=== PATIENT | female | born 1960 | race Caucasian/White ===

== ENCOUNTER 2019-09-21 09:11 | Inpatient (IN) | payer BC, MEDICARE, OTHER ==
[2019-09-21] VITALS (13 sets, daily range): BP systolic 110–142; BP diastolic 53–84
[~2019-09-21] VITALS: Ht 162.6 cm; Wt 72.4 kg
[~2019-09-21 09:11] MED LIST: OXYC1TAB15 PO
[2019-09-21] MEDS: NITROGLYCERIN SUBLINGUAL 0.4 MG BOTTLE OF 25. SL PRN ×3 (09:20→10:04)
--- NOTE | 2019-09-21 09:27 | PHYS DOC ---
Past Medical History Past Medical History: No Pertinent History Smoking Status: Current Every Day Smoker Alcohol Use: None Drug Use: None General Adult HPI: HPI: Patient is a 58 year old female who presents with substernal/l sided sharp chest pain that radiates between her shoulder blades with associated shortness of breath. Patient states she had the pain yesterday after smoking a cigarette for about 15 minutes and then it resolved. She had another short episode of the pain overnight that resolved. At 7am this morning, she smoked a cigarette and the pain started again. She states since then it has just gotten worse and isn't getting any better. She has never had anything similar. She has no cardiac history. She does have a history of tobacco abuse, HLD, HTN. Review of Systems: Review of Systems: General: Denies fever, chills, sweats, fatigue Eyes: Denies drainage, blurred vision, eye redness HENT: Denies rhinorrhea, sore throat, earache Respiratory: Denies cough, wheezing. Reports SOB Cardiac: Denies edema, palpitations. Reports chest pain GI: Denies abdominal pain, Nausea, vomiting MSK: Denies neck pain. Reports back pain Skin: Denies rash, jaundice Neuro: Denies headache, dizziness Psychiatric: Denies SI/HI Heart Score: Risk Factors: Risk Factors: DM, Current or recent (<one month) smoker, HTN, HLP, family history of CAD, obesity. Risk Scores: Score 0 - 3: 2.5% MACE over next 6 weeks - Discharge Home Score 4 - 6: 20.3% MACE over next 6 weeks - Admit for Clinical Observation Score 7 - 10: 72.7% MACE over next 6 weeks - Early Invasive Strategies Current Medications: Current Medications Medications (Trade) Dose Ordered Sig/Mikael Start Time Stop Time Status Last Admin Dose Admin Nitroglycerin (Nitrostat) 0.4 mg PRN Q5MIN PRN 09/21/19 09:30 UNV 09/21/19 09:20 0.4 MG Allergies: Allergies: Allergies Coded Allergies Type Severity Reaction Last Updated Verified No Known Drug Allergies 10/01/16 No Physical Exam: PE: General: Awake, alert, mild distress. Well Nourished, well hydrated. Cooperative HEENT: Atraumatic, EOMI, PERRL, airway patent, moist oral mucosa Neck: Supple, trachea midline Respiratory: CTA bilaterally, normal effort, no wheezing/crackles, decreased breath sounds bilaterally CV: RRR, no murmur, cap refill <2 GI: Soft, nondistended, nontender, no masses MSK: No obvious deformities Skin: Warm, dry, intact Neuro: A&O x3, speech NL, sensory and motor grossly intact, no focal deficits Psych: Normal affect, normal mood, not suicidal or homicidal Current Patient Data: Vital Signs: Vital Signs Date Time Temp Pulse Resp B/P (MAP) Pulse Ox O2 Delivery O2 Flow Rate FiO2 09/21/19 09:20 82 166/87 EKG: EKG: [] Radiology/Procedures: Radiology/Procedures: [] Course & Med Decision Making: Course & Med Decision Making Pertinent Labs and Imaging studies reviewed. (See chart for details) Patient is a 58 year-old female with a past medical history of HTN, HLD, tobacco abuse who presents to the Emergency Room complaining of chest pain and SOB. Upon arrival to the Emergency Room, an EKG was ordered and performed. EKG shows ST depression and some possible elevation concerning for possible STEMI. laboratory technology teacher was activated prior to patient's arrival and patient was discussed with the on-call Preschool Teacher Assistant. Cardiology care and evaluation greatly appreciated. STEMI was cancelled, however patient was evaluated by cardiology at 0950. Patient was given aspirin and work up was ordered including CBC, BMP, troponin, BNP, Chest X-ray. Care will be taken over by Cardiology at this time. Arrangements will be made for the patient to be admitted to the ICU floor. Dragon Disclaimer: Dragon Disclaimer: This electronic medical record was generated, in whole or in part, using a voice recognition dictation system. Critical Care Time Critical Care: Authorized and Performed by: Belén Herman MD Total critical care time: approximately 35 minutes Due to a high probability of clinically significant, life threatening deterioration, the patient required my highest level of preparedness to intervene emergently and I personally spent this critical care time directly and personally managing the patient. This critical care time included obtaining a history; examining the patient; pulse oximetry; ventilator management if necess maria dolores; ordering and review of studies; arranging urgent treatment with development of a management plan; evaluation of patient's response to treatment; frequent reassessment; discussion with patient/family; and, discussions with other providers. This critical care time was performed to assess and manage the high probability of imminent, life-threatening deterioration that could result in multi-organ failure. It was exclusive of separately billable procedures and treating other patients and teaching time. Please see MDM section and the rest of the note for further information on patient assessment and treatment. Departure Departure Impression: Primary Impression: ACS (acute coronary syndrome) Disposition: ADMITTED INPATIENT Condition: STABLE Referrals: MAY MARTINEZ Jr, MD (PCP) Justicifation of Admission Dx: Justifications for Admission: Justification of Admission Dx: Yes BELÉN HERMAN MD Sep 21, 2019 09:27
[2019-09-21] MEDS ORDERED: MORPHINE SULFATE 10 MG/ML VIAL. ONE (09:29)
[2019-09-21] MEDS ORDERED: MORPHINE SULFATE 10 MG/ML VIAL. IV ONE ×2 (09:30→10:00)
[2019-09-21 09:31] LABS: BASO # 0.1 x10^3/uL (0.0-0.2); BASO % 1 % (0-3); EOS # 0.2 x10^3/uL (0.0-0.7); EOS % 2 % (0-3); HEMATOCRIT 46.4 % (36.0-47.0); HEMOGLOBIN 15.8 g/dL (12.0-15.5); LYMPH % 28 % (24-48); MEAN CORPUSCULAR HEMOGLOBIN 36 pg (25-35); MEAN CORPUSCULAR HGB CONC 34 g/dL (31-37); MEAN CORPUSCULAR VOLUME 106 fL (79-100); MONO # 0.8 x10^3/uL (0.0-1.1); MONO % 8 % (0-9); NEUT # 6.6 x10^3/uL (1.8-7.7); NEUT % 61 % (31-73); PLATELET COUNT 232 x10^3/uL (140-400); RED CELL DISTRIBUTION WIDTH 15.4 % (11.5-14.5); WHITE BLOOD COUNT 10.7 x10^3/uL (4.0-11.0)
[2019-09-21 09:37] LABS: CALCIUM 9.6 mg/dL (8.5-10.1); CREATININE 0.8 mg/dL (0.6-1.0); GFR 73.2; POTASSIUM 3.4 mmol/L (3.5-5.1)
[2019-09-21 09:42] LABS: ALBUMIN 3.9 g/dL (3.4-5.0); ALBUMIN/GLOBULIN RATIO 1.1 (1.0-1.7); TOTAL BILIRUBIN 0.7 mg/dL (0.2-1.0); TOTAL PROTEIN 7.5 g/dL (6.4-8.2)
--- NOTE | 2019-09-21 09:54 | RAD ---
EXAM: CHEST AP ONLY INDICATION: Reason: chest pain, STEMI / Spl. Instructions: / History: . TECHNIQUE: Single view COMPARISON: Abdomen CT 09/30/2016 FINDINGS: The heart size is normal. The great vessels appear unremarkable. There is no hilar or mediastinal mass. The lungs show mild cephalization of the pulmonary vessels.. There is no pleural effusion or pneumothorax. There are no significant osseous abnormalities. IMPRESSION: Mild cephalization of pulmonary vessels, possibly a reflection of developing pulmonary vascular congestion. Otherwise no active cardiopulmonary disease. Electronically signed by: Karen Dugan MD (09/21/2019 9:51 AM) [id number]
[2019-09-21] MEDS ORDERED: HEPARIN for IV BOLUS 10,000 UNIT/10 ML VIAL. IV ONE ×2 (10:00→10:45)
[2019-09-21] MEDS ORDERED: LIDOCAINE 1% PF 2 ML VIAL. ONE (10:02)
--- NOTE | 2019-09-21 10:05 | EKG ---
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
[2019-09-21] MEDS ORDERED: HEPARIN for IV BOLUS 10,000 UNIT/10 ML VIAL. ONE (10:12)
[2019-09-21] MEDS ORDERED: VERAPAMIL 5 MG/2 ML VIAL. ONE (10:12)
[2019-09-21] MEDS ORDERED: IODIXANOL 320 MG/ML 100 ML VIAL. ONE ×2 (10:12→10:34)
[2019-09-21] MEDS ORDERED: MIDAZOLAM HCL/PF 2 MG/2 ML VIAL. ONE (10:12)
[2019-09-21] MEDS ORDERED: fentaNYL PF VIAL 100 MCG/2 ML VIAL ONE (10:12)
[2019-09-21] MEDS ORDERED: TIROFIBAN 5MG -0.9% NS 100 ML IV ONE (10:22)
[2019-09-21] MEDS: TIROFIBAN 5MG -0.9% NS 100 ML IV PRN ×3 (10:33→22:32)
[2019-09-21] MEDS ORDERED: PRASUGREL 10 MG TABLET. ONE (10:43)
[2019-09-21] MEDS ORDERED: HEPARIN for IV BOLUS 10,000 UNIT/10 ML VIAL. IART ONE (10:45)
[2019-09-21] MEDS ORDERED: LIDOCAINE 1% PF 2 ML VIAL. INJ ONE (10:45)
[2019-09-21] MEDS ORDERED: VERAPAMIL 5 MG/2 ML VIAL. IART ONE (10:45)
[2019-09-21] MEDS ORDERED: PRASUGREL 10 MG TABLET. PO ONE (10:45)
[2019-09-21] MEDS ORDERED: NITROGLYCERIN 200 MCG/2 ML SYRINGE FOR CATH/VASC LAB. IART ONE (10:45)
[2019-09-21] MEDS ORDERED: fentaNYL PF VIAL 100 MCG/2 ML VIAL IV ONE (10:45)
[2019-09-21] MEDS ORDERED: IODIXANOL 320 MG/ML 100 ML VIAL. IART ONE (10:45)
[2019-09-21] MEDS ORDERED: NITROGLYCERIN 200 MCG/2 ML SYRINGE FOR CATH/VASC LAB. ICAR ONE (10:45)
[2019-09-21 10:49] LABS: PLT ESTIMATE ADEQUATE (ADEQUATE)
[2019-09-21] MEDS ORDERED: MIDAZOLAM HCL/PF 2 MG/2 ML VIAL. IV ONE (11:00)
[2019-09-21] MEDS ORDERED: CONTRAST GIVEN. MC PRN (11:00)
--- NOTE | 2019-09-21 11:25 | EKG ---
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
[2019-09-21] MEDS ORDERED: LISI-334 PO (13:05)
[2019-09-21] MEDS ORDERED: PRAV40TA2 PO (13:05)
[2019-09-21] MEDS ORDERED: LEVO100T5 PO (13:05)
--- NOTE | 2019-09-21 13:48 | PDOC1 ---
History and Physical Date of Admission Date of Admission DATE: 09/21/19 TIME: 13:41 Identification/Chief Complaint Chief Complaint Chest pain History of Present Illness History of Present Illness Sudden left sternal chest pain today. Crushing pain, 10/18. No history similar pain. Past Medical History Cardiovascular: No pertinent hx, HTN Past Surgical History Past Surgical History: No pertinent history Family History Family History: Hypertension Social History Smoke: 1 pack per day ALCOHOL: none Drugs: None Current Problem List Problem List Problems Medical Problems: (1) ACS (acute coronary syndrome) Status: Acute Current Medications Current Medications Current Medications Nitroglycerin (Nitrostat) 0.4 mg PRN Q5MIN PRN SL CHEST PAIN Last administered on 09/21/19at 10:04; Start 09/21/19 at 09:30 Morphine Sulfate (Morphine Sulfate) 5 mg 1X ONCE IV Last administered on 09/21/19at 09:36; Start 09/21/19 at 09:30; Stop 09/21/19 at 09:31; Status DC Morphine Sulfate (Morphine Sulfate) 10 mg STK-MED ONCE .ROUTE ; Start 09/21/19 at 09:29; Stop 09/21/19 at 09:29; Status DC Morphine Sulfate (Morphine Sulfate) 5 mg 1X ONCE IV Last administered on 09/21/19at 10:03; Start 09/21/19 at 10:00; Stop 09/21/19 at 10:01; Status DC Heparin Sodium (Porcine) (Heparin Sodium) 4,000 unit 1X ONCE IV Last administered on 09/21/19at 10:04; Start 09/21/19 at 10:00; Stop 09/21/19 at 10:01; Status DC Lidocaine HCl (Xylocaine-Mpf 1% 2ml Vial) 2 ml STK-MED ONCE .ROUTE ; Start 09/21/19 at 10:02; Stop 09/21/19 at 10:03; Status DC Heparin Sodium/ Sodium Chloride 1,000 ml @ As Directed STK-MED ONCE .ROUTE ; Start 09/21/19 at 10:02; Stop 09/21/19 at 10:03; Status DC Fentanyl Citrate (Fentanyl 2ml Vial) 100 mcg STK-MED ONCE .ROUTE ; Start 09/21/19 at 10:12; Stop 09/21/19 at 10:12; Status DC Midazolam HCl (Versed) 2 mg STK-MED ONCE .ROUTE ; Start 09/21/19 at 10:12; Stop 09/21/19 at 10:12; Status DC Heparin Sodium (Porcine) (Heparin Sodium) 10,000 unit STK-MED ONCE .ROUTE ; Start 09/21/19 at 10:12; Stop 09/21/19 at 10:12; Status DC Verapamil HCl (Verapamil) 5 mg STK-MED ONCE .ROUTE ; Start 09/21/19 at 10:12; Stop 09/21/19 at 10:12; Status DC Iodixanol (Visipaque 320) 100 ml STK-MED ONCE .ROUTE ; Start 09/21/19 at 10:12; Stop 09/21/19 at 10:13; Status DC Tirofiban/Sodium Chloride 100 ml @ As Directed STK-MED ONCE IV ; Start 09/21/19 at 10:22; Stop 09/21/19 at 10:23; Status DC Iodixanol (Visipaque 320) 100 ml STK-MED ONCE .ROUTE ; Start 09/21/19 at 10:34; Stop 09/21/19 at 10:34; Status DC Prasugrel (Effient) 10 mg STK-MED ONCE .ROUTE ; Start 09/21/19 at 10:43; Stop 09/21/19 at 10:43; Status DC Nitroglycerin (Nitroglycerin) 200 mcg 1X ONCE IART Last administered on 09/21/19at 11:02; Start 09/21/19 at 10:45; Stop 09/21/19 at 10:58; Status DC Verapamil HCl (Verapamil) 2.5 mg 1X ONCE IART Last administered on 09/21/19at 11:03; Start 09/21/19 at 10:45; Stop 09/21/19 at 10:58; Status DC Heparin Sodium (Porcine) (Heparin Sodium) 2,500 unit 1X ONCE IART Last administered on 09/21/19at 11:05; Start 09/21/19 at 10:45; Stop 09/21/19 at 10:58; Status DC Heparin Sodium/ Sodium Chloride (HEPARIN for ARTERIAL LINE FLUSH) 1,000 unit 1X ONCE IART Last administered on 09/21/19at 11:02; Start 09/21/19 at 10:45; Stop 09/21/19 at 10:58; Status DC Fentanyl Citrate (Fentanyl 2ml Vial) 100 mcg 1X ONCE IV Last administered on 09/21/19at 11:03; Start 09/21/19 at 10:45; Stop 09/21/19 at 10:58; Status DC Iodixanol (Visipaque 320) 100 ml 1X ONCE IART Last administered on 09/21/19at 11:02; Start 09/21/19 at 10:45; Stop 09/21/19 at 10:58; Status DC Prasugrel (Effient) 60 mg 1X ONCE PO Last administered on 09/21/19at 11:02; S tart 09/21/19 at 10:45; Stop 09/21/19 at 10:58; Status DC Heparin Sodium (Porcine) (Heparin Sodium) 500 unit 1X ONCE IV Last a dministered on 09/21/19at 11:05; Start 09/21/19 at 10:45; Stop 09/21/19 at 10:58; Status DC Tirofiban/Sodium Chloride 100 ml @ 0 mls/hr CONT PRN IV PER PROTOCOL Last administered on 09/21/19at 10:33; Start 09/21/19 at 10:33; Stop 09/22/19 at 04:32 Lidocaine HCl (Xylocaine-Mpf 1% 2ml Vial) 1 ml 1X ONCE INJ Last administered on 09/21/19at 11:03; Start 09/21/19 at 10:45; Stop 09/21/19 at 10:58; Status DC Nitroglycerin (Nitroglycerin) 200 mcg 1X ONCE ICAR Last administered on 09/21/19at 11:02; Start 09/21/19 at 10:45; Stop 09/21/19 at 10:58; Status DC Midazolam HCl (Versed) 1 mg 1X ONCE IV Last administered on 09/21/19at 11:03; Start 09/21/19 at 11:00; Stop 09/21/19 at 11:01; Status DC Info (CONTRAST GIVEN -- Rx MONITORING) 1 each PRN DAILY PRN MC SEE COMMENTS; Start 09/21/19 at 11:00; Stop 09/23/19 at 10:59 Active Scripts Active Reported Pravastatin Sodium 40 Mg Tablet 1 Tab PO QHS Levothyroxine Sodium 100 Mcg Tablet 1 Tab PO DAILY Lisinopril 20 Mg Tablet 1 Tab PO DAILY Percocet 5-325 Mg Tablet (Oxycodone/Acetaminophen) 1 Each Tablet 1 Tab PO PRN Q8HRS PRN Allergies Allergies: Coded Allergies: No Known Drug Allergies (Unverified , 10/01/16) ROS Cardiovascular: yes Chest Pain Physical Exam General: Oriented X3 HEENT: Mucous membr. moist/pink Lungs: Normal air movement Heart: RRR Abdomen: No tenderness Skin: No rashes Neuro: Normal speech Psych/Mental Status: Mental status NL Vitals Vitals Vital Signs Date Time Temp Pulse Resp B/P (MAP) Pulse Ox O2 Delivery O2 Flow Rate FiO2 09/21/19 12:30 75 16 123/65 (84) 97 09/21/19 11:50 Room Air 09/21/19 11:47 98.1 98.1 09/21/19 11:06 2.0 Labs Labs Laboratory Tests Test 09/21/19 09:17 09/21/19 10:26 White Blood Count 10.7 x10^3/uL (4.0-11.0) Red Blood Count 4.40 x10^6/uL (3.50-5.40) Hemoglobin 15.8 g/dL (12.0-15.5) Hematocrit 46.4 % (36.0-47.0) Mean Corpuscular Volume 106 fL (79-100) Mean Corpuscular Hemoglobin 36 pg (25-35) Mean Corpuscular Hemoglobin Concent 34 g/dL (31-37) Red Cell Distribution Width 15.4 % (11.5-14.5) Platelet Count 232 x10^3/uL (140-400) Neutrophils (%) (Auto) 61 % (31-73) Lymphocytes (%) (Auto) 28 % (24-48) Monocytes (%) (Auto) 8 % (0-9) Eosinophils (%) (Auto) 2 % (0-3) Basophils (%) (Auto) 1 % (0-3) Neutrophils # (Auto) 6.6 x10^3/uL (1.8-7.7) Lymphocytes # (Auto) 3.0 x10^3/uL (1.0-4.8) Monocytes # (Auto) 0.8 x10^3/uL (0.0-1.1) Eosinophils # (Auto) 0.2 x10^3/uL (0.0-0.7) Basophils # (Auto) 0.1 x10^3/uL (0.0-0.2) Platelet Estimate Adequate (ADEQUATE) Large Platelets Present Macrocytosis Present Sodium Level 138 mmol/L (136-145) Potassium Level 3.4 mmol/L (3.5-5.1) Chloride Level 101 mmol/L (98-107) Carbon Dioxide Level 24 mmol/L (21-32) Anion Gap 13 (6-14) Blood Urea Nitrogen 17 mg/dL (7-20) Creatinine 0.8 mg/dL (0.6-1.0) Estimated GFR (Cockcroft-Gault) 73.2 BUN/Creatinine Ratio 21 (6-20) Glucose Level 172 mg/dL (70-99) Calcium Level 9.6 mg/dL (8.5-10.1) Total Bilirubin 0.7 mg/dL (0.2-1.0) Aspartate Amino Transf (AST/SGOT) 14 U/L (15-37) Alanine Aminotransferase (ALT/SGPT) 14 U/L (14-59) Alkaline Phosphatase 82 U/L (46-116) Troponin I Quantitative < 0.017 ng/mL (0.000-0.055) QG-Okj-N-Type Natriuretic Peptide 243 pg/mL (0-124) Total Protein 7.5 g/dL (6.4-8.2) Albumin 3.9 g/dL (3.4-5.0) Albumin/Globulin Ratio 1.1 (1.0-1.7) Activated Clotting Time 209 sec (92-181) Laboratory Tests Test 09/21/19 09:17 09/21/19 10:26 White Blood Count 10.7 x10^3/uL (4.0-11.0) Red Blood Count 4.40 x10^6/uL (3.50-5.40) Hemoglobin 15.8 g/dL (12.0-15.5) Hematocrit 46.4 % (36.0-47.0) Mean Corpuscular Volume 106 fL (79-100) Mean Corpuscular Hemoglobin 36 pg (25-35) Mean Corpuscular Hemoglobin Concent 34 g/dL (31-37) Red Cell Distribution Width 15.4 % (11.5-14.5) Platelet Count 232 x10^3/uL (140-400) Neutrophils (%) (Auto) 61 % (31-73) Lymphocytes (%) (Auto) 28 % (24-48) Monocytes (%) (Auto) 8 % (0-9) Eosinophils (%) (Auto) 2 % (0-3) Basophils (%) (Auto) 1 % (0-3) Neutrophils # (Auto) 6.6 x10^3/uL (1.8-7.7) Lymphocytes # (Auto) 3.0 x10^3/uL (1.0-4.8) Monocytes # (Auto) 0.8 x10^3/uL (0.0-1.1) Eosinophils # (Auto) 0.2 x10^3/uL (0.0-0.7) Basophils # (Auto) 0.1 x10^3/uL (0.0-0.2) Platelet Estimate Adequate (ADEQUATE) Large Platelets Present Macrocytosis Present Sodium Level 138 mmol/L (136-145) Potassium Level 3.4 mmol/L (3.5-5.1) Chloride Level 101 mmol/L (98-107) Carbon Dioxide Level 24 mmol/L (21-32) Anion Gap 13 (6-14) Blood Urea Nitrogen 17 mg/dL (7-20) Creatinine 0.8 mg/dL (0.6-1.0) Estimated GFR (Cockcroft-Gault) 73.2 BUN/Creatinine Ratio 21 (6-20) Glucose Level 172 mg/dL (70-99) Calcium Level 9.6 mg/dL (8.5-10.1) Total Bilirubin 0.7 mg/dL (0.2-1.0) Aspartate Amino Transf (AST/SGOT) 14 U/L (15-37) Alanine Aminotransferase (ALT/SGPT) 14 U/L (14-59) Alkaline Phosphatase 82 U/L (46-116) Troponin I Quantitative < 0.017 ng/mL (0.000-0.055) AC-Ayv-O-Type Natriuretic Peptide 243 pg/mL (0-124) Total Protein 7.5 g/dL (6.4-8.2) Albumin 3.9 g/dL (3.4-5.0) Albumin/Globulin Ratio 1.1 (1.0-1.7) Activated Clotting Time 209 sec (92-181) VTE Prophylaxis Ordered VTE Prophylaxis Devices: Yes VTE Pharmacological Prophylaxi: Yes Assessment/Plan Assessment/Plan Acute chest pain/Unstable Angina - taken to [employer]; admitted to ICU, but will transfer to floor New CAD - full meds discussed Tobacco use - cessation provided Justicifation of Admission Dx: Justifications for Admission: Justification of Admission Dx: Yes COTY SPAULDING MD Sep 21, 2019 13:48
--- NOTE | 2019-09-21 13:53 | NUR ---
1130 Pt admitted to room 108 from clinical lab clerk. Pt alert and oreinted answers all question appropriately. No complaints of chest pain at this time. TR Band on right wrist clinical lab clerk report 9cc in balloon. VSS stable 1230 2cc Air released from TR band with no bleeding . Told patient about not using the right hand especially for phone use. Explained about the arm board and answered question. Daughter and Son in law at bedside and questions answered. 1345 Pt transferred to [facility] via wheel chair./
[2019-09-21] MEDS ORDERED: LISINOPRIL 5 MG TABLET. PO SCH (14:00)
[2019-09-21] MEDS ORDERED: MORPHINE SULFATE 4 MG/ML VIAL. IV PRN (14:00)
[2019-09-21] MEDS ORDERED: NICOTINE 14MG PATCH. TD PRN (14:00)
[2019-09-21] MEDS ORDERED: POTASSIUM CHLORIDE 20 MEQ TABLET.ER. PO ONE (14:00)
[2019-09-21] MEDS: ASPIRIN CHEWABLE 81 MG TABLET. PO SCH (14:28)
[2019-09-21] MEDS: METOPROLOL TART IMMED RELEASE 25 MG TABLET. PO SCH (21:14)
[2019-09-21] MEDS: ATORVASTATIN CALCIUM 40 MG TABLET. PO SCH (21:14)
[2019-09-22 02:45] VITALS: BP 121/73
[2019-09-22 05:41] LABS: BASO % 0 % (0-3); EOS # 0.2 x10^3/uL (0.0-0.7); EOS % 2 % (0-3); HEMATOCRIT 42.2 % (36.0-47.0); HEMOGLOBIN 14.3 g/dL (12.0-15.5); LYMPH # 2.3 x10^3/uL (1.0-4.8); LYMPH % 22 % (24-48); MEAN CORPUSCULAR HEMOGLOBIN 36 pg (25-35); MEAN CORPUSCULAR HGB CONC 34 g/dL (31-37); MEAN CORPUSCULAR VOLUME 105 fL (79-100); MONO # 0.6 x10^3/uL (0.0-1.1); MONO % 6 % (0-9); NEUT # 7.4 x10^3/uL (1.8-7.7); NEUT % 70 % (31-73); PLATELET COUNT 183 x10^3/uL (140-400); RED BLOOD COUNT 4.03 x10^6/uL (3.50-5.40); RED CELL DISTRIBUTION WIDTH 15.6 % (11.5-14.5); WHITE BLOOD COUNT 10.5 x10^3/uL (4.0-11.0)
[2019-09-22 05:55] LABS: ALBUMIN 3.4 g/dL (3.4-5.0); ALBUMIN/GLOBULIN RATIO 1.1 (1.0-1.7); CALCIUM 8.9 mg/dL (8.5-10.1); CREATININE 0.8 mg/dL (0.6-1.0); GFR 73.2; TOTAL BILIRUBIN 1.1 mg/dL (0.2-1.0); TOTAL PROTEIN 6.6 g/dL (6.4-8.2)
[2019-09-22 06:03] LABS: CHOLESTEROL/HDL RATIO 4.3
[2019-09-22 07:00] VITALS: BP 139/62
--- NOTE | 2019-09-22 07:09 | CARD ---
MR#: [id number] Date of Study: 09/21/2019 Ordering Physician: BING SIERRA, Referring Physician: BING SIERRA, Tech: Soila Felix APPROVED REPORT Technologist: Soila Felix Nurse: Leslie Carr R.N. Procedure(s) performed: fl time: 8.9 mins dose: 91 gycm2 contrast: 170 ml moderate sedation: 50 MINS LHC, Coronary angiography, PCI of the LAD HISTORY The patient is a 58 year-old female with a history of : tobacco history() , hypertension, dyslipidemi a. INDICATION The indication(s) include : STEMI . [facility] Clinical Frailty Scale [facility] Clinical Frailty Scale: Mildly Frail Heart Failure Heart Failure: Yes If Yes, Newly Diagnosed: Yes If Yes, HF Type: Diastolic Systolic If Yes, NYHA Class: Class III PROCEDURE NARRATIVE Clinical information: 58-year-old woman who presents to the hospital in the setting of STEMI. Initial EKG did not reveal an y significant changes but repeat EKG 15 minutes after presentation revealed evolving anterior STEMI, she was taken emergently to the irrigation laborer. Informed consent: Written informed consent was obtained from the patient after adequate discussion of the risks and neto efits of the procedure. Procedure details: ACCESS: The right wrist was prepped and draped in usual sterile fashion. Under 1% lidocaine local anesthesia a 6 Marshallese Terumo sheath was placed in the right radial artery via the Seldinger technique. DIAGNOSTIC ANGIOGRAPHY: Right and left coronary arteries were engaged with a 6 Marshallese TIG catheter. Diagnostic angiography i n multiple views were obtained. Next, a 6 Marshallese pigtail catheter was placed in the left ventricle a nd a LVEDP was measured. A pullback was performed after left ventriculography. All catheters were e xchanged over J-tip guidewire. FINDINGS: ======= Aorta: 150/80 LVEDP: 20 mmHg Left ventriculogram: Ejection fraction 55% Mild anterior and apical wall hypokinesis. No significant mitral or aortic insufficiency. Coronary angiography: LM: Large caliber vessel with normal angiographic appearance LAD: Moderate caliber vessel with a proximal 100% stenosis. D1: Small caliber vessel with normal angiographic appearance LCX: Moderate caliber non-dominant vessel with up to 20% stenosis. Ramus is a small caliber vessel with a proximal 30% stenosis. OM1: Moderate caliber vessel with normal angiographic appearance RCA: Large caliber dominant vessel with up to 30% diffuse disease. RPDA: Small to moderate caliber vessel with severe diffuse disease of up to 70%. INTERVENTIONAL TECHNIQUE: PCI of proximal LAD occlusion. Heparin and Tirofiban were used for anticoagulation. Through a 6Fr EBU 3.5 guide catheter, a 0.014'' Prowater wire was used to engage the LAD. The lesion was angioplastied with a 2.5 mm balloon and an I VUS was performed for vessel size assessment. The lesion was then stented with a Xience 3.25/28 MILLER a nd post-dilated with a 3.25mm NC balloon at 14 josemanuel. Final angiography demonstrated excellent stent ex pansion with CECILE 3 flow. The patient received 60mg of prasugrel at case completion. CLOSURE: At case completion the right radial sheath was removed and a Terumo radial band was applied with 11 m L of air. Hemostasis was achieved. COMPLICATIONS: No acute complications noted CECILE Flow CECILE Flow (Pre-Intervention): CECILE-0 CECILE Flow (Post-Intervention): CECILE-3 Conclusion 1. Acute anterior STEMI due to LAD occlusion. s/p successful PCI of the LAD with implantation of a Xi ence 3.25 x 28 mm MILLER. 2. Two vessel coronary disease. 3. Normal LV systolic function. EF 55% Recommendations ASA 81mg daily Prasugrel 10mg daily Cardiac rehab referral Risk factor modificaiton Statin therapy. Signed by : Bing Sierra, Electronically Approved : 09/22/2019 07:09:33
--- NOTE | 2019-09-22 07:58 | PDOC2 ---
CARDIOLOGY CONSULT NOTE DATE OF SERVICE: DATE: 09/21/19 *LATE ENTRY FOR 09/21/2019 CHIEF COMPLAINT: Chest pain HPI: 58-year-old woman who presented with stuttering chest pain x2 days with worsening pain about 2 hours prior to presentation. Initial EKG did not reveal any significant pathology and a repeat EKG during chest pain revealed anterior ST elevations and therefore she was taken emergently to the cardiac cathete rization laboratory after verbal informed consent. PMHX: Hypertension Dyslipidemia Tobacco abuse SOCHX: No illicit drug use no severe alcohol use. She has 1 child. FAMHX: Positive for coronary disease CURRENT MEDS: Current Medications Medications (Trade) Dose Ordered Sig/Mikael Route PRN Reason Start Time Stop Time Status Last Admin Dose Admin Nitroglycerin (Nitrostat) 0.4 mg PRN Q5MIN PRN SL CHEST PAIN 09/21/19 09:30 09/21/19 10:04 Morphine Sulfate (Morphine Sulfate) 5 mg 1X ONCE IV 09/21/19 09:30 09/21/19 09:31 DC 09/21/19 09:36 Morphine Sulfate (Morphine Sulfate) 5 mg 1X ONCE IV 09/21/19 10:00 09/21/19 10:01 DC 09/21/19 10:03 Heparin Sodium (Porcine) (Heparin Sodium) 4,000 unit 1X ONCE IV 09/21/19 10:00 09/21/19 10:01 DC 09/21/19 10:04 Nitroglycerin (Nitroglycerin) 200 mcg 1X ONCE IART 09/21/19 10:45 09/21/19 10:58 DC 09/21/19 11:02 Verapamil HCl (Verapamil) 2.5 mg 1X ONCE IART 09/21/19 10:45 09/21/19 10:58 DC 09/21/19 11:03 Heparin Sodium (Porcine) (Heparin Sodium) 2,500 unit 1X ONCE IART 09/21/19 10:45 09/21/19 10:58 DC 09/21/19 11:05 Heparin Sodium/ Sodium Chloride (HEPARIN for ARTERIAL LINE FLUSH) 1,000 unit 1X ONCE IART 09/21/19 10:45 09/21/19 10:58 DC 09/21/19 11:02 Fentanyl Citrate (Fentanyl 2ml Vial) 100 mcg 1X ONCE IV 09/21/19 10:45 09/21/19 10:58 DC 09/21/19 11:03 Iodixanol (Visipaque 320) 100 ml 1X ONCE IART 09/21/19 10:45 09/21/19 10:58 DC 09/21/19 11:02 Prasugrel (Effient) 60 mg 1X ONCE PO 09/21/19 10:45 09/21/19 10:58 DC 09/21/19 11:02 Heparin Sodium (Porcine) (Heparin Sodium) 500 unit 1X ONCE IV 09/21/19 10:45 09/21/19 10:58 DC 09/21/19 11:05 Tirofiban/Sodium Chloride 100 ml @ 0 mls/hr CONT PRN IV PER PROTOCOL 09/21/19 10:33 09/22/19 04:32 DC 09/21/19 22:32 Lidocaine HCl (Xylocaine-Mpf 1% 2ml Vial) 1 ml 1X ONCE INJ 09/21/19 10:45 09/21/19 10:58 DC 09/21/19 11:03 Nitroglycerin (Nitroglycerin) 200 mcg 1X ONCE ICAR 09/21/19 10:45 09/21/19 10:58 DC 09/21/19 11:02 Midazolam HCl (Versed) 1 mg 1X ONCE IV 09/21/19 11:00 09/21/19 11:01 DC 09/21/19 11:03 Lisinopril (Prinivil) 5 mg DAILY PO 09/21/19 14:00 09/21/19 15:01 DC 09/21/19 14:29 Aspirin (Aspirin Chewable) 81 mg DAILYWBKFT PO 09/21/19 14:15 09/21/19 14:28 Atorvastatin Calcium (Lipitor) 40 mg QHS PO 09/21/19 21:00 09/21/19 21:14 Metoprolol Tartrate (Lopressor) 12.5 mg BID PO 09/21/19 21:00 09/21/19 21:14 Potassium Chloride (Klor-Con) 40 meq 1X ONCE PO 09/21/19 14:00 09/21/19 14:03 DC 09/21/19 14:29 ALLERGIES: Allergies Coded Allergies Type Severity Reaction Last Updated Verified No Known Drug Allergies 10/01/16 No ROS: Negative for 10 out of 14 systems reviewed unless otherwise mentioned above. Patient was in severe pain when evaluated. PHYSICAL EXAM: Vital Signs/I&O: Vital Signs Date Time Temp Pulse Resp B/P (MAP) Pulse Ox O2 Delivery O2 Flow Rate FiO2 09/22/19 07:00 97.8 72 16 139/62 (87) 94 Room Air 97.8 09/21/19 11:06 2.0 I & O 09/21/19 09/21/19 09/22/19 15:00 23:00 07:00 Intake Total 150 ml 318 ml 200 ml Balance 150 ml 318 ml 200 ml Physical Exam: On initial examination the patient was alert and oriented but in severe pain in the chest. Headache exam remarkable Cardiac regular rate and rhythm Lungs clear Abdomen soft 2+ radial and pedal pulses No neurologic deficits No musculoskeletal abnormalities noted No skin rashes DIAGNOSTIC TESTING: Initial EKG demonstrated [address] elevations Lab Laboratory Tests Test 09/21/19 09:17 09/21/19 10:26 09/22/19 05:00 White Blood Count 10.7 x10^3/uL (4.0-11.0) 10.5 x10^3/uL (4.0-11.0) Red Blood Count 4.40 x10^6/uL (3.50-5.40) 4.03 x10^6/uL (3.50-5.40) Hemoglobin 15.8 g/dL (12.0-15.5) H 14.3 g/dL (12.0-15.5) Hematocrit 46.4 % (36.0-47.0) 42.2 % (36.0-47.0) Mean Corpuscular Volume 106 fL (79-100) H 105 fL (79-100) H Mean Corpuscular Hemoglobin 36 pg (25-35) H 36 pg (25-35) H Mean Corpuscular Hemoglobin Concent 34 g/dL (31-37) 34 g/dL (31-37) Red Cell Distribution Width 15.4 % (11.5-14.5) H 15.6 % (11.5-14.5) H Platelet Count 232 x10^3/uL (140-400) 183 x10^3/uL (140-400) Neutrophils (%) (Auto) 61 % (31-73) 70 % (31-73) Lymphocytes (%) (Auto) 28 % (24-48) 22 % (24-48) L Monocytes (%) (Auto) 8 % (0-9) 6 % (0-9) Eosinophils (%) (Auto) 2 % (0-3) 2 % (0-3) Basophils (%) (Auto) 1 % (0-3) 0 % (0-3) Neutrophils # (Auto) 6.6 x10^3/uL (1.8-7.7) 7.4 x10^3/uL (1.8-7.7) Lymphocytes # (Auto) 3.0 x10^3/uL (1.0-4.8) 2.3 x10^3/uL (1.0-4.8) Monocytes # (Auto) 0.8 x10^3/uL (0.0-1.1) 0.6 x10^3/uL (0.0-1.1) Eosinophils # (Auto) 0.2 x10^3/uL (0.0-0.7) 0.2 x10^3/uL (0.0-0.7) Basophils # (Auto) 0.1 x10^3/uL (0.0-0.2) 0.0 x10^3/uL (0.0-0.2) Platelet Estimate Adequate (ADEQUATE) Large Platelets Present Macrocytosis Present Sodium Level 138 mmol/L (136-145) 139 mmol/L (136-145) Potassium Level 3.4 mmol/L (3.5-5.1) L 4.0 mmol/L (3.5-5.1) Chloride Level 101 mmol/L (98-107) 104 mmol/L (98-107) Carbon Dioxide Level 24 mmol/L (21-32) 27 mmol/L (21-32) Anion Gap 13 (6-14) 8 (6-14) Blood Urea Nitrogen 17 mg/dL (7-20) 12 mg/dL (7-20) Creatinine 0.8 mg/dL (0.6-1.0) 0.8 mg/dL (0.6-1.0) Estimated GFR (Cockcroft-Gault) 73.2 73.2 BUN/Creatinine Ratio 21 (6-20) H 15 (6-20) Glucose Level 172 mg/dL (70-99) H 125 mg/dL (70-99) H Calcium Level 9.6 mg/dL (8.5-10.1) 8.9 mg/dL (8.5-10.1) Total Bilirubin 0.7 mg/dL (0.2-1.0) 1.1 mg/dL (0.2-1.0) H Aspartate Amino Transf (AST/SGOT) 14 U/L (15-37) L 129 U/L (15-37) H Alkaline Phosphatase 82 U/L (46-116) 68 U/L (46-116) Total Protein 7.5 g/dL (6.4-8.2) 6.6 g/dL (6.4-8.2) Albumin 3.9 g/dL (3.4-5.0) 3.4 g/dL (3.4-5.0) Albumin/Globulin Ratio 1.1 (1.0-1.7) 1.1 (1.0-1.7) Activated Clotting Time 209 sec (92-181) Cholesterol Level 182 mg/dL (0-200) LDL Cholesterol, Calculated 84 mg/dL (0-100) VLDL Cholesterol, Calculated 56 mg/dL (0-40) H Non-HDL Cholesterol Calculated 140 mg/dL (0-129) H Cholesterol/HDL Ratio 4.3 Laboratory Tests 09/22/19 05:00 ASSESSMENT: 1. Acute anterior ST elevation [place] status post successful PCI to the LAD PLAN: 1. Continue aspirin, Prasugrel 2. Continue statin therapy. 3. Plan for monitoring for 24 to 48 hours and if no acute issues then plan for discharge with cardiac rehab. BING HOLBROOK MD Sep 22, 2019 07:58
[2019-09-22] MEDS: VITAMIN B12,B9,B6 COMPLEX 1 TABLET. PO SCH (08:50)
[2019-09-22] MEDS: ASPIRIN CHEWABLE 81 MG TABLET. PO SCH (08:50)
[2019-09-22] MEDS: PRASUGREL 10 MG TABLET. PO SCH (08:52)
[2019-09-22] MEDS: LISINOPRIL 5 MG TABLET. PO SCH (08:52)
[2019-09-22] MEDS: METOPROLOL TART IMMED RELEASE 25 MG TABLET. PO SCH ×2 (08:53→21:30)
[2019-09-22 11:09] VITALS: BP 112/65
--- NOTE | 2019-09-22 12:58 | NUR ---
SS following for discharge planning. SS reviewed pt chart and discussed with pt RN. Pt is from home and is currently on room air. Pt had heart cath on 09/21/2019. Discharge plan is to home when medically ready. SS will continue to follow for discharge planning.
--- NOTE | 2019-09-22 13:47 | PDOC ---
PROGRESS NOTES Date of Service: DATE: 09/22/19 TIME: 13:46 Chief Complaint Chief Complaint STEMI - Acute chest pain - stent TO LAD New CAD Tobacco use disorder - cessation provided obese, BMI 30 Vitals Vitals Vital Signs Date Time Temp Pulse Resp B/P (MAP) Pulse Ox O2 Delivery O2 Flow Rate FiO2 09/22/19 11:09 98.3 75 18 112/65 (81) 96 Room Air 98.3 09/21/19 11:06 2.0 Physical Exam General: Alert, Oriented X3, Cooperative, No acute distress Heart: Regular rate Lungs: Clear Abdomen: Normal bowel sounds, No tenderness Extremities: No clubbing Skin: No rashes Labs LABS Laboratory Tests Test 09/22/19 05:00 White Blood Count 10.5 x10^3/uL (4.0-11.0) Red Blood Count 4.03 x10^6/uL (3.50-5.40) Hemoglobin 14.3 g/dL (12.0-15.5) Hematocrit 42.2 % (36.0-47.0) Mean Corpuscular Volume 105 fL (79-100) Mean Corpuscular Hemoglobin 36 pg (25-35) Mean Corpuscular Hemoglobin Concent 34 g/dL (31-37) Red Cell Distribution Width 15.6 % (11.5-14.5) Platelet Count 183 x10^3/uL (140-400) Neutrophils (%) (Auto) 70 % (31-73) Lymphocytes (%) (Auto) 22 % (24-48) Monocytes (%) (Auto) 6 % (0-9) Eosinophils (%) (Auto) 2 % (0-3) Basophils (%) (Auto) 0 % (0-3) Neutrophils # (Auto) 7.4 x10^3/uL (1.8-7.7) Lymphocytes # (Auto) 2.3 x10^3/uL (1.0-4.8) Monocytes # (Auto) 0.6 x10^3/uL (0.0-1.1) Eosinophils # (Auto) 0.2 x10^3/uL (0.0-0.7) Basophils # (Auto) 0.0 x10^3/uL (0.0-0.2) Sodium Level 139 mmol/L (136-145) Potassium Level 4.0 mmol/L (3.5-5.1) Chloride Level 104 mmol/L (98-107) Carbon Dioxide Level 27 mmol/L (21-32) Anion Gap 8 (6-14) Blood Urea Nitrogen 12 mg/dL (7-20) Creatinine 0.8 mg/dL (0.6-1.0) Estimated GFR (Cockcroft-Gault) 73.2 BUN/Creatinine Ratio 15 (6-20) Glucose Level 125 mg/dL (70-99) Calcium Level 8.9 mg/dL (8.5-10.1) Total Bilirubin 1.1 mg/dL (0.2-1.0) Aspartate Amino Transf (AST/SGOT) 129 U/L (15-37) Alanine Aminotransferase (ALT/SGPT) 40 U/L (14-59) Alkaline Phosphatase 68 U/L (46-116) Total Protein 6.6 g/dL (6.4-8.2) Albumin 3.4 g/dL (3.4-5.0) Albumin/Globulin Ratio 1.1 (1.0-1.7) Triglycerides Level 281 mg/dL (0-150) Cholesterol Level 182 mg/dL (0-200) LDL Cholesterol, Calculated 84 mg/dL (0-100) VLDL Cholesterol, Calculated 56 mg/dL (0-40) Non-HDL Cholesterol Calculated 140 mg/dL (0-129) HDL Cholesterol 42 mg/dL (40-60) Cholesterol/HDL Ratio 4.3 Vitamin B12 Level 162 pg/mL (247-911) Assessment and Plan Assessmemt and Plan Problems Medical Problems: (1) ACS (acute coronary syndrome) Status: Acute Comment Review of Relevant I have reviewed the following items leno (where applicable) has been applied. Labs Laboratory Tests Test 09/21/19 09:17 09/21/19 10:26 09/22/19 05:00 White Blood Count 10.7 x10^3/uL (4.0-11.0) 10.5 x10^3/uL (4.0-11.0) Red Blood Count 4.40 x10^6/uL (3.50-5.40) 4.03 x10^6/uL (3.50-5.40) Hemoglobin 15.8 g/dL (12.0-15.5) 14.3 g/dL (12.0-15.5) Hematocrit 46.4 % (36.0-47.0) 42.2 % (36.0-47.0) Mean Corpuscular Volume 106 fL (79-100) 105 fL (79-100) Mean Corpuscular Hemoglobin 36 pg (25-35) 36 pg (25-35) Mean Corpuscular Hemoglobin Concent 34 g/dL (31-37) 34 g/dL (31-37) Red Cell Distribution Width 15.4 % (11.5-14.5) 15.6 % (11.5-14.5) Platelet Count 232 x10^3/uL (140-400) 183 x10^3/uL (140-400) Neutrophils (%) (Auto) 61 % (31-73) 70 % (31-73) Lymphocytes (%) (Auto) 28 % (24-48) 22 % (24-48) Monocytes (%) (Auto) 8 % (0-9) 6 % (0-9) Eosinophils (%) (Auto) 2 % (0-3) 2 % (0-3) Basophils (%) (Auto) 1 % (0-3) 0 % (0-3) Neutrophils # (Auto) 6.6 x10^3/uL (1.8-7.7) 7.4 x10^3/uL (1.8-7.7) Lymphocytes # (Auto) 3.0 x10^3/uL (1.0-4.8) 2.3 x10^3/uL (1.0-4.8) Monocytes # (Auto) 0.8 x10^3/uL (0.0-1.1) 0.6 x10^3/uL (0.0-1.1) Eosinophils # (Auto) 0.2 x10^3/uL (0.0-0.7) 0.2 x10^3/uL (0.0-0.7) Basophils # (Auto) 0.1 x10^3/uL (0.0-0.2) 0.0 x10^3/uL (0.0-0.2) Platelet Estimate Adequate (ADEQUATE) Large Platelets Present Macrocytosis Present Sodium Level 138 mmol/L (136-145) 139 mmol/L (136-145) Potassium Level 3.4 mmol/L (3.5-5.1) 4.0 mmol/L (3.5-5.1) Chloride Level 101 mmol/L (98-107) 104 mmol/L (98-107) Carbon Dioxide Level 24 mmol/L (21-32) 27 mmol/L (21-32) Anion Gap 13 (6-14) 8 (6-14) Blood Urea Nitrogen 17 mg/dL (7-20) 12 mg/dL (7-20) Creatinine 0.8 mg/dL (0.6-1.0) 0.8 mg/dL (0.6-1.0) Estimated GFR (Cockcroft-Gault) 73.2 73.2 BUN/Creatinine Ratio 21 (6-20) 15 (6-20) Glucose Level 172 mg/dL (70-99) 125 mg/dL (70-99) Calcium Level 9.6 mg/dL (8.5-10.1) 8.9 mg/dL (8.5-10.1) Total Bilirubin 0.7 mg/dL (0.2-1.0) 1.1 mg/dL (0.2-1.0) Aspartate Amino Transf (AST/SGOT) 14 U/L (15-37) 129 U/L (15-37) Alanine Aminotransferase (ALT/SGPT) 14 U/L (14-59) 40 U/L (14-59) Alkaline Phosphatase 82 U/L (46-116) 68 U/L (46-116) Troponin I Quantitative < 0.017 ng/mL (0.000-0.055) [id number] Natriuretic Peptide 243 pg/mL (0-124) Total Protein 7.5 g/dL (6.4-8.2) 6.6 g/dL (6.4-8.2) Albumin 3.9 g/dL (3.4-5.0) 3.4 g/dL (3.4-5.0) Albumin/Globulin Ratio 1.1 (1.0-1.7) 1.1 (1.0-1.7) Activated Clotting Time 209 sec (92-181) Triglycerides Level 281 mg/dL (0-150) Cholesterol Level 182 mg/dL (0-200) LDL Cholesterol, Calculated 84 mg/dL (0-100) VLDL Cholesterol, Calculated 56 mg/dL (0-40) Non-HDL Cholesterol Calculated 140 mg/dL (0-129) HDL Cholesterol 42 mg/dL (40-60) Cholesterol/HDL Ratio 4.3 Vitamin B12 Level 162 pg/mL (247-911) Laboratory Tests Test 09/22/19 05:00 White Blood Count 10.5 x10^3/uL (4.0-11.0) Red Blood Count 4.03 x10^6/uL (3.50-5.40) Hemoglobin 14.3 g/dL (12.0-15.5) Hematocrit 42.2 % (36.0-47.0) Mean Corpuscular Volume 105 fL (79-100) Mean Corpuscular Hemoglobin 36 pg (25-35) Mean Corpuscular Hemoglobin Concent 34 g/dL (31-37) Red Cell Distribution Width 15.6 % (11.5-14.5) Platelet Count 183 x10^3/uL (140-400) Neutrophils (%) (Auto) 70 % (31-73) Lymphocytes (%) (Auto) 22 % (24-48) Monocytes (%) (Auto) 6 % (0-9) Eosinophils (%) (Auto) 2 % (0-3) Basophils (%) (Auto) 0 % (0-3) Neutrophils # (Auto) 7.4 x10^3/uL (1.8-7.7) Lymphocytes # (Auto) 2.3 x10^3/uL (1.0-4.8) Monocytes # (Auto) 0.6 x10^3/uL (0.0-1.1) Eosinophils # (Auto) 0.2 x10^3/uL (0.0-0.7) Basophils # (Auto) 0.0 x10^3/uL (0.0-0.2) Sodium Level 139 mmol/L (136-145) Potassium Level 4.0 mmol/L (3.5-5.1) Chloride Level 104 mmol/L (98-107) Carbon Dioxide Level 27 mmol/L (21-32) Anion Gap 8 (6-14) Blood Urea Nitrogen 12 mg/dL (7-20) Creatinine 0.8 mg/dL (0.6-1.0) Estimated GFR (Cockcroft-Gault) 73.2 BUN/Creatinine Ratio 15 (6-20) Glucose Level 125 mg/dL (70-99) Calcium Level 8.9 mg/dL (8.5-10.1) Total Bilirubin 1.1 mg/dL (0.2-1.0) Aspartate Amino Transf (AST/SGOT) 129 U/L (15-37) Alanine Aminotransferase (ALT/SGPT) 40 U/L (14-59) Alkaline Phosphatase 68 U/L (46-116) Total Protein 6.6 g/dL (6.4-8.2) Albumin 3.4 g/dL (3.4-5.0) Albumin/Globulin Ratio 1.1 (1.0-1.7) Triglycerides Level 281 mg/dL (0-150) Cholesterol Level 182 mg/dL (0-200) LDL Cholesterol, Calculated 84 mg/dL (0-100) VLDL Cholesterol, Calculated 56 mg/dL (0-40) Non-HDL Cholesterol Calculated 140 mg/dL (0-129) HDL Cholesterol 42 mg/dL (40-60) Cholesterol/HDL Ratio 4.3 Vitamin B12 Level 162 pg/mL (247-911) Medications Current Medications Nitroglycerin (Nitrostat) 0.4 mg PRN Q5MIN PRN SL CHEST PAIN Last administered on 09/21/19at 10:04; Start 09/21/19 at 09:30 Morphine Sulfate (Morphine Sulfate) 5 mg 1X ONCE IV Last administered on 09/21/19at 09:36; Start 09/21/19 at 09:30; Stop 09/21/19 at 09:31; Status DC Morphine Sulfate (Morphine Sulfate) 10 mg STK-MED ONCE .ROUTE ; Start 09/21/19 at 09:29; Stop 09/21/19 at 09:29; Status DC Morphine Sulfate (Morphine Sulfate) 5 mg 1X ONCE IV Last administered on 09/21/19at 10:03; Start 09/21/19 at 10:00; Stop 09/21/19 at 10:01; Status DC Heparin Sodium (Porcine) (Heparin Sodium) 4,000 unit 1X ONCE IV Last administered on 09/21/19at 10:04; Start 09/21/19 at 10:00; Stop 09/21/19 at 10:01; Status DC Lidocaine HCl (Xylocaine-Mpf 1% 2ml Vial) 2 ml STK-MED ONCE .ROUTE ; Start 09/21/19 at 10:02; Stop 09/21/19 at 10:03; Status DC Heparin Sodium/ Sodium Chloride 1,000 ml @ As Directed STK-MED ONCE .ROUTE ; Start 09/21/19 at 10:02; Stop 09/21/19 at 10:03; Status DC Fentanyl Citrate (Fentanyl 2ml Vial) 100 mcg STK-MED ONCE .ROUTE ; Start 09/21/19 at 10:12; Stop 09/21/19 at 10:12; Status DC Midazolam HCl (Versed) 2 mg STK-MED ONCE .ROUTE ; Start 09/21/19 at 10:12; Stop 09/21/19 at 10:12; Status DC Heparin Sodium (Porcine) (Heparin Sodium) 10,000 unit STK-MED ONCE .ROUTE ; Start 09/21/19 at 10:12; Stop 09/21/19 at 10:12; Status DC Verapamil HCl (Verapamil) 5 mg STK-MED ONCE .ROUTE ; Start 09/21/19 at 10:12; Stop 09/21/19 at 10:12; Status DC Iodixanol (Visipaque 320) 100 ml STK-MED ONCE .ROUTE ; Start 09/21/19 at 10:12; Stop 09/21/19 at 10:13; Status DC Tirofiban/Sodium Chloride 100 ml @ As Directed STK-MED ONCE IV ; Start 09/21/19 at 10:22; Stop 09/21/19 at 10:23; Status DC Iodixanol (Visipaque 320) 100 ml STK-MED ONCE .ROUTE ; Start 09/21/19 at 10:34; Stop 09/21/19 at 10:34; Status DC Prasugrel (Effient) 10 mg STK-MED ONCE .ROUTE ; Start 09/21/19 at 10:43; Stop 09/21/19 at 10:43; Status DC Nitroglycerin (Nitroglycerin) 200 mcg 1X ONCE IART Last administered on 09/21/19at 11:02; Start 09/21/19 at 10:45; Stop 09/21/19 at 10:58; Status DC Verapamil HCl (Verapamil) 2.5 mg 1X ONCE IART Last administered on 09/21/19at 11:03; Start 09/21/19 at 10:45; Stop 09/21/19 at 10:58; Status DC Heparin Sodium (Porcine) (Heparin Sodium) 2,500 unit 1X ONCE IART Last administered on 09/21/19at 11:05; Start 09/21/19 at 10:45; Stop 09/21/19 at 10:58; Status DC Heparin Sodium/ Sodium Chloride (HEPARIN for ARTERIAL LINE FLUSH) 1,000 unit 1X ONCE IART Last administered on 09/21/19at 11:02; Start 09/21/19 at 10:45; Stop 09/21/19 at 10:58; Status DC Fentanyl Citrate (Fentanyl 2ml Vial) 100 mcg 1X ONCE IV Last administered on 09/21/19 11:03; Start 09/21/19 at 10:45; Stop 09/21/19 at 10:58; Status DC Iodixanol (Visipaque 320) 100 ml 1X ONCE IART Last administered on 09/21/19 11:02; Start 09/21/19 at 10:45; Stop 09/21/19 at 10:58; Status DC Prasugrel (Effient) 60 mg 1X ONCE PO Last administered on 09/21/19at 11:02; Start 09/21/19 at 10:45; Stop 09/21/19 at 10:58; Status DC Heparin Sodium (Porcine) (Heparin Sodium) 500 unit 1X ONCE IV Last administ ered on 09/21/19at 11:05; Start 09/21/19 at 10:45; Stop 09/21/19 at 10:58; Status DC Tirofiban/Sodium Chloride 100 ml @ 0 mls/hr CONT PRN IV PER PROTOCOL Last administered on 09/21/19at 22:32; Start 09/21/19 at 10:33; Stop 09/22/19 at 04:32; Status DC Lidocaine HCl (Xylocaine-Mpf 1% 2ml Vial) 1 ml 1X ONCE INJ Last administered on 09/21/19at 11:03; Start 09/21/19 at 10:45; Stop 09/21/19 at 10:58; Status DC Nitroglycerin (Nitroglycerin) 200 mcg 1X ONCE ICAR Last administered on 09/21/19at 11:02; Start 09/21/19 at 10:45; Stop 09/21/19 at 10:58; Status DC Midazolam HCl (Versed) 1 mg 1X ONCE IV Last administered on 09/21/19at 11:03; Start 09/21/19 at 11:00; Stop 09/21/19 at 11:01; Status DC Info (CONTRAST GIVEN -- Rx MONITORING) 1 each PRN DAILY PRN MC SEE COMMENTS; Start 09/21/19 at 11:00; Stop 09/23/19 at 10:59 Nicotine (Nicoderm Cq 14mg) 1 patch PRN DAILY PRN TD SMOKING CESSATION; Start 09/21/19 at 14:00 Morphine Sulfate (Morphine Sulfate) 4 mg PRN Q2HR PRN IV MODERATE TO SEVERE PAIN; Start 09/21/19 at 14:00 Lisinopril (Prinivil) 5 mg DAILY PO Last administered on 09/21/19at 14:29; Start 09/21/19 at 14:00; Stop 09/21/19 at 15:01; Status DC Aspirin (Aspirin Chewable) 81 mg DAILYWBKFT PO Last administered on 09/22/19at 08:50; Start 09/21/19 at 14:15 Atorvastatin Calcium (Lipitor) 40 mg QHS PO Last administered on 09/21/19at 21:14; Start 09/21/19 at 21:00 Metoprolol Tartrate (Lopressor) 12.5 mg BID PO Last administered on 09/22/19at 08:53; Start 09/21/19 at 21:00 Potassium Chloride (Klor-Con) 40 meq 1X ONCE PO Last administered on 09/21/19at 14:29; Start 09/21/19 at 14:00; Stop 09/21/19 at 14:03; Status DC Lisinopril (Prinivil) 2.5 mg DAILY PO Last administered on 09/22/19at 08:52; Start 09/22/19 at 09:00 Vitamin B Complex (Folbic Tablet) 1 tab DAILY PO Last administered on 09/22/19at 08:50; Start 09/22/19 at 09:00 Prasugrel (Effient) 10 mg DAILYWBKFT PO Last administered on 09/22/19at 08:52; Start 09/22/19 at 08:30 Active Scripts Active Reported Pravastatin Sodium 40 Mg Tablet 1 Tab PO QHS Levothyroxine Sodium 100 Mcg Tablet 1 Tab PO DAILY Lisinopril 20 Mg Tablet 1 Tab PO DAILY Percocet 5-325 Mg Tablet (Oxycodone/Acetaminophen) 1 Each Tablet 1 Tab PO PRN Q8HRS PRN Vitals/I & O Vital Sign - Last 24 Hours 09/21/19 09/21/19 09/21/19 09/21/19 13:48 13:54 14:00 14:29 Pulse 74 71 74 Resp 14 B/P (MAP) 118/57 (77) 142/68 (92) 142/68 Pulse Ox 98 O2 Delivery Room Air Room Air 09/21/19 09/21/19 09/21/19 09/21/19 14:35 14:54 15:54 19:24 Temp 98.0 97.7 98.0 97.7 Pulse 60 74 62 67 Resp 18 16 B/P (MAP) 142/68 (92) 140/84 (102) 139/73 (95) 138/78 (98) Pulse Ox 99 97 96 98 O2 Delivery Room Air Room Air 09/21/19 09/21/19 09/21/19 09/22/19 19:50 21:14 23:52 02:45 Temp 97.8 97.7 97.8 97.7 Pulse 67 58 66 Resp 16 16 B/P (MAP) 138/78 135/70 (91) 121/73 (89) Pulse Ox 98 94 O2 Delivery Room Air Room Air Room Air 09/22/19 09/22/19 09/22/19 09/22/19 07:00 08:00 08:52 08:53 Temp 97.8 97.8 Pulse 72 79 72 Resp 16 B/P (MAP) 139/62 (87) 139/62 139/62 Pulse Ox 94 O2 Delivery Room Air Room Air 09/22/19 11:09 Temp 98.3 98.3 Pulse 75 Resp 18 B/P (MAP) 112/65 (81) Pulse Ox 96 O2 Delivery Room Air Intake and Output 09/21/19 09/21/19 09/22/19 15:00 23:00 07:00 Intake Total 150 ml 318 ml 200 ml Balance 150 ml 318 ml 200 ml Justicifation of Admission Dx: Justifications for Admission: Justification of Admission Dx: Yes COTY SPAULDING MD Sep 22, 2019 13:47
[2019-09-22 15:17] VITALS: BP 109/63
[2019-09-22 19:00] VITALS: BP 118/64
[2019-09-22] MEDS: ATORVASTATIN CALCIUM 40 MG TABLET. PO SCH (21:30)
[2019-09-22 22:59] VITALS: BP 132/70
--- NOTE | 2019-09-23 00:10 | PDOC ---
CARDIOLOGY PROGRESS NOTE SUBJECTIVE: LATE ENTRY FOR 09/22/2019 No new issues. Denies any chest pain. OBJECTIVE: Vital Signs/I&O: Vital Signs Date Time Temp Pulse Resp B/P (MAP) Pulse Ox O2 Delivery O2 Flow Rate FiO2 09/22/19 22:59 98.0 68 20 132/70 (90) 97 Room Air 98.0 I & O 09/22/19 09/22/19 09/23/19 15:00 23:00 07:00 Intake Total 480 ml 180 ml Output Total 0 ml Balance 480 ml 180 ml Objective: GEN.: No apparent distress. Alert and oriented. HEENT: Head is normocephalic, atraumatic NECK: Supple. LUNGS: Clear to auscultation. HEART: RRR, S1, S2 present. Peripheral pulses intact ABDOMEN: Soft, nontender. Positive bowel sounds. EXTREMITIES: Without any cyanosis. NEUROLOGIC: Normal speech, normal tone PSYCHIATRIC: Normal affect, normal mood. SKIN: No ulcerations CURRENT MEDICATIONS: Current Medications Medications (Trade) Dose Ordered Sig/Mikael Route PRN Reason Start Time Stop Time Status Last Admin Dose Admin Lisinopril (Prinivil) 2.5 mg DAILY PO 09/22/19 09:00 09/22/19 08:52 Vitamin B Complex (Folbic Tablet) 1 tab DAILY PO 09/22/19 09:00 09/22/19 08:50 Prasugrel (Effient) 10 mg DAILYWBKFT PO 09/22/19 08:30 09/22/19 08:52 DIAGNOSTIC TESTING: Labs: Laboratory Tests 09/22/19 05:00 Laboratory Tests Test 09/22/19 05:00 White Blood Count 10.5 x10^3/uL (4.0-11.0) Red Blood Count 4.03 x10^6/uL (3.50-5.40) Hemoglobin 14.3 g/dL (12.0-15.5) Hematocrit 42.2 % (36.0-47.0) Mean Corpuscular Volume 105 fL (79-100) H Mean Corpuscular Hemoglobin 36 pg (25-35) H Mean Corpuscular Hemoglobin Concent 34 g/dL (31-37) Red Cell Distribution Width 15.6 % (11.5-14.5) H Platelet Count 183 x10^3/uL (140-400) Neutrophils (%) (Auto) 70 % (31-73) Lymphocytes (%) (Auto) 22 % (24-48) L Monocytes (%) (Auto) 6 % (0-9) Eosinophils (%) (Auto) 2 % (0-3) Basophils (%) (Auto) 0 % (0-3) Neutrophils # (Auto) 7.4 x10^3/uL (1.8-7.7) Lymphocytes # (Auto) 2.3 x10^3/uL (1.0-4.8) Monocytes # (Auto) 0.6 x10^3/uL (0.0-1.1) Eosinophils # (Auto) 0.2 x10^3/uL (0.0-0.7) Basophils # (Auto) 0.0 x10^3/uL (0.0-0.2) Sodium Level 139 mmol/L (136-145) Potassium Level 4.0 mmol/L (3.5-5.1) Chloride Level 104 mmol/L (98-107) Carbon Dioxide Level 27 mmol/L (21-32) Anion Gap 8 (6-14) Blood Urea Nitrogen 12 mg/dL (7-20) Creatinine 0.8 mg/dL (0.6-1.0) Estimated GFR (Cockcroft-Gault) 73.2 BUN/Creatinine Ratio 15 (6-20) Glucose Level 125 mg/dL (70-99) H Calcium Level 8.9 mg/dL (8.5-10.1) Total Bilirubin 1.1 mg/dL (0.2-1.0) H Aspartate Amino Transf (AST/SGOT) 129 U/L (15-37) H Alkaline Phosphatase 68 U/L (46-116) Total Protein 6.6 g/dL (6.4-8.2) Albumin 3.4 g/dL (3.4-5.0) Albumin/Globulin Ratio 1.1 (1.0-1.7) Cholesterol Level 182 mg/dL (0-200) LDL Cholesterol, Calculated 84 mg/dL (0-100) VLDL Cholesterol, Calculated 56 mg/dL (0-40) H Non-HDL Cholesterol Calculated 140 mg/dL (0-129) H Cholesterol/HDL Ratio 4.3 Vitamin B12 Level 162 pg/mL (247-911) L ASSESSMENT: 1. Anterior STEMI s/p PCI 2. HTN 3. Tobacco abuse 4. Dyslipidemia PLAN: 1. COntinue present meds. Ok to DC. She will f/u in the office in 2 months. Thanks *Late entry for 09/22/2019 Justicifation of Admission Dx: Justifications for Admission: Justification of Admission Dx: Yes BING HOLBROOK MD Sep 23, 2019 00:10
[2019-09-23 03:40] VITALS: BP 109/43
[2019-09-23 07:00] VITALS: BP 116/62
[2019-09-23] MEDS: ASPIRIN CHEWABLE 81 MG TABLET. PO SCH (09:30)
[2019-09-23] MEDS: PRASUGREL 10 MG TABLET. PO SCH (09:30)
[2019-09-23] MEDS: METOPROLOL TART IMMED RELEASE 25 MG TABLET. PO SCH (09:31)
[2019-09-23] MEDS: VITAMIN B12,B9,B6 COMPLEX 1 TABLET. PO SCH (09:31)
[2019-09-23] MEDS: LISINOPRIL 5 MG TABLET. PO SCH (09:31)
[2019-09-23 11:01] VITALS: BP 106/55
--- NOTE | 2019-09-23 11:33 | PDOC ---
PROGRESS NOTES Date of Service: DATE: 09/23/19 TIME: 11:30 Chief Complaint Chief Complaint STEMI - Acute chest pain - stent TO LAD New CAD Tobacco use disorder - cessation provided obese, BMI 30 History of Present Illness History of Present Illness Patient feels well, denies chest pain. She requested I discuss her findings and hospital course with her son-in-law, which was done by phone. She feels well to discharge home Vitals Vitals Vital Signs Date Time Temp Pulse Resp B/P (MAP) Pulse Ox O2 Delivery O2 Flow Rate FiO2 09/23/19 11:01 98.4 69 18 106/55 (72) 98 Room Air 98.4 09/22/19 20:00 2.0 Physical Exam General: Alert, Oriented X3, Cooperative, No acute distress Heart: Regular rate Lungs: Clear Abdomen: Normal bowel sounds, No tenderness Extremities: No clubbing Skin: No rashes Review of Systems Review of Systems No nausea, no vomiting, no chest pain. Assessment and Plan Assessmemt and Plan Problems Medical Problems: (1) ACS (acute coronary syndrome) Status: Acute Comment Review of Relevant I have reviewed the following items leno (where applicable) has been applied. Labs Laboratory Tests Test 09/22/19 05:00 White Blood Count 10.5 x10^3/uL (4.0-11.0) Red Blood Count 4.03 x10^6/uL (3.50-5.40) Hemoglobin 14.3 g/dL (12.0-15.5) Hematocrit 42.2 % (36.0-47.0) Mean Corpuscular Volume 105 fL (79-100) Mean Corpuscular Hemoglobin 36 pg (25-35) Mean Corpuscular Hemoglobin Concent 34 g/dL (31-37) Red Cell Distribution Width 15.6 % (11.5-14.5) Platelet Count 183 x10^3/uL (140-400) Neutrophils (%) (Auto) 70 % (31-73) Lymphocytes (%) (Auto) 22 % (24-48) Monocytes (%) (Auto) 6 % (0-9) Eosinophils (%) (Auto) 2 % (0-3) Basophils (%) (Auto) 0 % (0-3) Neutrophils # (Auto) 7.4 x10^3/uL (1.8-7.7) Lymphocytes # (Auto) 2.3 x10^3/uL (1.0-4.8) Monocytes # (Auto) 0.6 x10^3/uL (0.0-1.1) Eosinophils # (Auto) 0.2 x10^3/uL (0.0-0.7) Basophils # (Auto) 0.0 x10^3/uL (0.0-0.2) Sodium Level 139 mmol/L (136-145) Potassium Level 4.0 mmol/L (3.5-5.1) Chloride Level 104 mmol/L (98-107) Carbon Dioxide Level 27 mmol/L (21-32) Anion Gap 8 (6-14) Blood Urea Nitrogen 12 mg/dL (7-20) Creatinine 0.8 mg/dL (0.6-1.0) Estimated GFR (Cockcroft-Gault) 73.2 BUN/Creatinine Ratio 15 (6-20) Glucose Level 125 mg/dL (70-99) Calcium Level 8.9 mg/dL (8.5-10.1) Total Bilirubin 1.1 mg/dL (0.2-1.0) Aspartate Amino Transf (AST/SGOT) 129 U/L (15-37) Alanine Aminotransferase (ALT/SGPT) 40 U/L (14-59) Alkaline Phosphatase 68 U/L (46-116) Total Protein 6.6 g/dL (6.4-8.2) Albumin 3.4 g/dL (3.4-5.0) Albumin/Globulin Ratio 1.1 (1.0-1.7) Triglycerides Level 281 mg/dL (0-150) Cholesterol Level 182 mg/dL (0-200) LDL Cholesterol, Calculated 84 mg/dL (0-100) VLDL Cholesterol, Calculated 56 mg/dL (0-40) Non-HDL Cholesterol Calculated 140 mg/dL (0-129) HDL Cholesterol 42 mg/dL (40-60) Cholesterol/HDL Ratio 4.3 Vitamin B12 Level 162 pg/mL (247-911) Medications Current Medications Nitroglycerin (Nitrostat) 0.4 mg PRN Q5MIN PRN SL CHEST PAIN Last administered on 09/21/19at 10:04; Start 09/21/19 at 09:30 Morphine Sulfate (Morphine Sulfate) 5 mg 1X ONCE IV Last administered on 09/21/19at 09:36; Start 09/21/19 at 09:30; Stop 09/21/19 at 09:31; Status DC Morphine Sulfate (Morphine Sulfate) 10 mg STK-MED ONCE .ROUTE ; Start 09/21/19 at 09:29; Stop 09/21/19 at 09:29; Status DC Morphine Sulfate (Morphine Sulfate) 5 mg 1X ONCE IV Last administered on 09/21/19at 10:03; Start 09/21/19 at 10:00; Stop 09/21/19 at 10:01; Status DC Heparin Sodium (Porcine) (Heparin Sodium) 4,000 unit 1X ONCE IV Last administered on 09/21/19at 10:04; Start 09/21/19 at 10:00; Stop 09/21/19 at 10:01; Status DC Lidocaine HCl (Xylocaine-Mpf 1% 2ml Vial) 2 ml STK-MED ONCE .ROUTE ; Start 09/21/19 at 10:02; Stop 09/21/19 at 10:03; Status DC Heparin Sodium/ Sodium Chloride 1,000 ml @ As Directed STK-MED ONCE .ROUTE ; Start 09/21/19 at 10:02; Stop 09/21/19 at 10:03; Status DC Fentanyl Citrate (Fentanyl 2ml Vial) 100 mcg STK-MED ONCE .ROUTE ; Start 09/21/19 at 10:12; Stop 09/21/19 at 10:12; Status DC Midazolam HCl (Versed) 2 mg STK-MED ONCE .ROUTE ; Start 09/21/19 at 10:12; Stop 09/21/19 at 10:12; Status DC Heparin Sodium (Porcine) (Heparin Sodium) 10,000 unit STK-MED ONCE .ROUTE ; Start 09/21/19 at 10:12; Stop 09/21/19 at 10:12; Status DC Verapamil HCl (Verapamil) 5 mg STK-MED ONCE .ROUTE ; Start 09/21/19 at 10:12; Stop 09/21/19 at 10:12; Status DC Iodixanol (Visipaque 320) 100 ml STK-MED ONCE .ROUTE ; Start 09/21/19 at 10:12; Stop 09/21/19 at 10:13; Status DC Tirofiban/Sodium Chloride 100 ml @ As Directed STK-MED ONCE IV ; Start 09/21/19 at 10:22; Stop 09/21/19 at 10:23; Status DC Iodixanol (Visipaque 320) 100 ml STK-MED ONCE .ROUTE ; Start 09/21/19 at 10:34; Stop 09/21/19 at 10:34; Status DC Prasugrel (Effient) 10 mg STK-MED ONCE .ROUTE ; Start 09/21/19 at 10:43; Stop 09/21/19 at 10:43; Status DC Nitroglycerin (Nitroglycerin) 200 mcg 1X ONCE IART Last administered on 09/21/19at 11:02; Start 09/21/19 at 10:45; Stop 09/21/19 at 10:58; Status DC Verapamil HCl (Verapamil) 2.5 mg 1X ONCE IART Last administered on 09/21/19at 11:03; Start 09/21/19 at 10:45; Stop 09/21/19 at 10:58; Status DC Heparin Sodium (Porcine) (Heparin Sodium) 2,500 unit 1X ONCE IART Last administered on 09/21/19at 11:05; Start 09/21/19 at 10:45; Stop 09/21/19 at 10:58; Status DC Heparin Sodium/ Sodium Chloride (HEPARIN for ARTERIAL LINE FLUSH) 1,000 unit 1X ONCE IART Last administered on 09/21/19at 11:02; Start 09/21/19 at 10:45; Stop 09/21/19 at 10:58; Status DC Fentanyl Citrate (Fentanyl 2ml Vial) 100 mcg 1X ONCE IV Last administered on 09/21/19at 11:03; Start 09/21/19 at 10:45; Stop 09/21/19 at 10:58; Status DC Iodixanol (Visipaque 320) 100 ml 1X ONCE IART Last administered on 09/21/19 11:02; Start 09/21/19 at 10:45; Stop 09/21/19 at 10:58; Status DC Prasugrel (Effient) 60 mg 1X ONCE PO Last administered on 09/21/19 11:02; Start 09/21/19 at 10:45; Stop 09/21/19 at 10:58; Status DC Heparin Sodium (Porcine) (Heparin Sodium) 500 unit 1X ONCE IV Last administere d on 09/21/19at 11:05; Start 09/21/19 at 10:45; Stop 09/21/19 at 10:58; Status DC Tirofiban/Sodium Chloride 100 ml @ 0 mls/hr CONT PRN IV PER PROTOCOL Last administered on 09/21/19at 22:32; Start 09/21/19 at 10:33; Stop 09/22/19 at 04:32; Status DC Lidocaine HCl (Xylocaine-Mpf 1% 2ml Vial) 1 ml 1X ONCE INJ Last administered on 09/21/19at 11:03; Start 09/21/19 at 10:45; Stop 09/21/19 at 10:58; Status DC Nitroglycerin (Nitroglycerin) 200 mcg 1X ONCE ICAR Last administered on 09/21/19at 11:02; Start 09/21/19 at 10:45; Stop 09/21/19 at 10:58; Status DC Midazolam HCl (Versed) 1 mg 1X ONCE IV Last administered on 09/21/19at 11:03; Start 09/21/19 at 11:00; Stop 09/21/19 at 11:01; Status DC Info (CONTRAST GIVEN -- Rx MONITORING) 1 each PRN DAILY PRN MC SEE COMMENTS; Start 09/21/19 at 11:00; Stop 09/23/19 at 10:59; Status DC Nicotine (Nicoderm Cq 14mg) 1 patch PRN DAILY PRN TD SMOKING CESSATION; Start 09/21/19 at 14:00 Morphine Sulfate (Morphine Sulfate) 4 mg PRN Q2HR PRN IV MODERATE TO SEVERE PAIN; Start 09/21/19 at 14:00 Lisinopril (Prinivil) 5 mg DAILY PO Last administered on 09/21/19at 14:29; Start 09/21/19 at 14:00; Stop 09/21/19 at 15:01; Status DC Aspirin (Aspirin Chewable) 81 mg DAILYWBKFT PO Last administered on 09/23/19at 09:30; Start 09/21/19 at 14:15 Atorvastatin Calcium (Lipitor) 40 mg QHS PO Last administered on 09/22/19at 21:30; Start 09/21/19 at 21:00 Metoprolol Tartrate (Lopressor) 12.5 mg BID PO Last administered on 09/23/19at 09:31; Start 09/21/19 at 21:00 Potassium Chloride (Klor-Con) 40 meq 1X ONCE PO Last administered on 09/21/19at 14:29; Start 09/21/19 at 14:00; Stop 09/21/19 at 14:03; Status DC Lisinopril (Prinivil) 2.5 mg DAILY PO Last administered on 09/23/19at 09:31; Start 09/22/19 at 09:00 Vitamin B Complex (Folbic Tablet) 1 tab DAILY PO Last administered on 09/23/19 09:31; Start 09/22/19 at 09:00 Prasugrel (Effient) 10 mg DAILYWBKFT PO Last administered on 09/23/19at 09:30; Start 09/22/19 at 08:30 Active Scripts Active Reported Pravastatin Sodium 40 Mg Tablet 1 Tab PO QHS Levothyroxine Sodium 100 Mcg Tablet 1 Tab PO DAILY Lisinopril 20 Mg Tablet 1 Tab PO DAILY Percocet 5-325 Mg Tablet (Oxycodone/Acetaminophen) 1 Each Tablet 1 Tab PO PRN Q8HRS PRN Vitals/I & O Vital Sign - Last 24 Hours 09/22/19 09/22/19 09/22/19 09/22/19 15:17 19:00 20:00 21:30 Temp 98.3 98.1 98.3 98.1 Pulse 65 70 70 Resp 16 20 B/P (MAP) 109/63 (78) 118/64 (82) 118/64 Pulse Ox 96 97 O2 Delivery Room Air Room Air Room Air O2 Flow Rate 2.0 09/22/19 09/23/19 09/23/19 09/23/19 22:59 03:40 07:00 09:31 Temp 98.0 98.4 98.3 98.0 98.4 98.3 Pulse 68 69 71 75 Resp 20 20 20 B/P (MAP) 132/70 (90) 109/43 (65) 116/62 (80) 116/62 Pulse Ox 97 97 96 O2 Delivery Room Air Room Air Room Air 09/23/19 09/23/19 09:31 11:01 Temp 98.4 98.4 Pulse 71 69 Resp 18 B/P (MAP) 116/62 106/55 (72) Pulse Ox 98 O2 Delivery Room Air Intake and Output 8/14/20 8/14/20 8/15/20 15:00 23:00 07:00 Intake Total 480 ml 180 ml 100 ml Output Total 0 ml Balance 480 ml 180 ml 100 ml Justicifation of Admission Dx: Justifications for Admission: Justification of Admission Dx: Yes MARCOS PRESTON MD Sep 23, 2019 11:33
[2019-09-23] MEDS ORDERED: CYAN1TAB19 PO (11:45)
[2019-09-23] MEDS ORDERED: ASPI-630 PO (11:45)
[2019-09-23] MEDS ORDERED: METO25TA4 PO (11:45)
[2019-09-23] MEDS ORDERED: ATOR40TA59 PO (11:45)
[2019-09-23] MEDS ORDERED: PRAS10TA9 PO (11:48)
--- NOTE | 2019-09-23 12:04 | PDOC3 ---
Discharge Summary Visit Information Date of Admission: Sep 21, 2019 Date of Discharge: Sep 23, 2019 Admitting Diagnosis: ACS Admitting Diagnosis Comment: Sudden left sternal chest pain on date of admission Crushing pain, 10/18. No history similar pain. Final Diagnosis Problems Medical Problems: (1) ACS (acute coronary syndrome) Status: Acute . Brief Hospital Course Allergies Allergies Coded Allergies Type Severity Reaction Last Updated Verified No Known Drug Allergies 10/01/16 No Vital Signs Vital Signs Date Time Temp Pulse Resp B/P (MAP) Pulse Ox O2 Delivery O2 Flow Rate FiO2 09/23/19 11:01 98.4 69 18 106/55 (72) 98 Room Air 98.4 09/22/19 20:00 2.0 Lab Results Laboratory Tests Test 09/22/19 05:00 White Blood Count 10.5 x10^3/uL (4.0-11.0) Red Blood Count 4.03 x10^6/uL (3.50-5.40) Hemoglobin 14.3 g/dL (12.0-15.5) Hematocrit 42.2 % (36.0-47.0) Mean Corpuscular Volume 105 fL (79-100) Mean Corpuscular Hemoglobin 36 pg (25-35) Mean Corpuscular Hemoglobin Concent 34 g/dL (31-37) Red Cell Distribution Width 15.6 % (11.5-14.5) Platelet Count 183 x10^3/uL (140-400) Neutrophils (%) (Auto) 70 % (31-73) Lymphocytes (%) (Auto) 22 % (24-48) Monocytes (%) (Auto) 6 % (0-9) Eosinophils (%) (Auto) 2 % (0-3) Basophils (%) (Auto) 0 % (0-3) Neutrophils # (Auto) 7.4 x10^3/uL (1.8-7.7) Lymphocytes # (Auto) 2.3 x10^3/uL (1.0-4.8) Monocytes # (Auto) 0.6 x10^3/uL (0.0-1.1) Eosinophils # (Auto) 0.2 x10^3/uL (0.0-0.7) Basophils # (Auto) 0.0 x10^3/uL (0.0-0.2) Sodium Level 139 mmol/L (136-145) Potassium Level 4.0 mmol/L (3.5-5.1) Chloride Level 104 mmol/L (98-107) Carbon Dioxide Level 27 mmol/L (21-32) Anion Gap 8 (6-14) Blood Urea Nitrogen 12 mg/dL (7-20) Creatinine 0.8 mg/dL (0.6-1.0) Estimated GFR (Cockcroft-Gault) 73.2 BUN/Creatinine Ratio 15 (6-20) Glucose Level 125 mg/dL (70-99) Calcium Level 8.9 mg/dL (8.5-10.1) Total Bilirubin 1.1 mg/dL (0.2-1.0) Aspartate Amino Transf (AST/SGOT) 129 U/L (15-37) Alanine Aminotransferase (ALT/SGPT) 40 U/L (14-59) Alkaline Phosphatase 68 U/L (46-116) Total Protein 6.6 g/dL (6.4-8.2) Albumin 3.4 g/dL (3.4-5.0) Albumin/Globulin Ratio 1.1 (1.0-1.7) Triglycerides Level 281 mg/dL (0-150) Cholesterol Level 182 mg/dL (0-200) LDL Cholesterol, Calculated 84 mg/dL (0-100) VLDL Cholesterol, Calculated 56 mg/dL (0-40) Non-HDL Cholesterol Calculated 140 mg/dL (0-129) HDL Cholesterol 42 mg/dL (40-60) Cholesterol/HDL Ratio 4.3 Vitamin B12 Level 162 pg/mL (247-911) Brief Hospital Course Ms. Hernandez is a 58 old [sex] who presented with [ ] Assessment Assessment S/P PCI with placement of MILLER. Symptoms resolved, f/u with cardiology in 2 months with referral to cardiac rehab. >35 min was spent on patient's discharge discussing new medications and lifestyle modifications, [id number]. Discharge Information Condition at Discharge: Improved Follow Up: Months Disposition/Orders: D/C to Home Scheduled Aspirin (Aspirin) 81 Mg Tab.chew, 81 MG PO DAILYWBKFT for CAD, #30 Ref 3 Prescribed by: MARCOS PRESTON MD on 09/23/19 1154 Atorvastatin Calcium (Atorvastatin Calcium) 40 Mg Tablet, 40 MG PO QHS for CAD, #30 Ref 3 Prescribed by: MARCOS PRESTON MD on 09/23/19 1154 Cyanocobalamin/Fa/Pyridoxine (Folbic Tablet) 1 Each Tablet, 1 TAB PO DAILY for CAD, #30 Ref 2 Prescribed by: MARCOS PRESTON MD on 09/23/19 1154 Levothyroxine Sodium (Levothyroxine Sodium) 100 Mcg Tablet, 1 TAB PO DAILY for thyroid, #30 Ref 5 (Reported) Entered as Reported by: JESÚS MONTGOMERY on 09/21/191304 Last Action: New Order on 09/21/191304 by JESÚS MONTGOMERY Lisinopril (Lisinopril) 20 Mg Tablet, 1 TAB PO DAILY for bp, #30 Ref 5 (Reported) Entered as Reported by: JESÚS MONTGOMERY on 09/21/191304 Last Action: New Order on 09/21/191304 by JESÚS MONTGOMERY Metoprolol Tartrate (Metoprolol Tartrate) 25 Mg Tablet, 12.5 MG PO BID for UT, #60 Prescribed by: MARCOS PRESTON MD on 09/23/19 1154 Prasugrel Hcl (Effient) 10 Mg Tablet, 10 MG PO DAILYWBKFT for Cardiac Stent for 30 Days, #30 Ref 9 Prescribed by: MARCOS PRESTON MD on 09/23/19 1154 Pravastatin Sodium (Pravastatin Sodium) 40 Mg Tablet, 1 TAB PO QHS for lipid, #90 Ref 1 (Reported) Entered as Reported by: JESÚS MONTGOMERY on 09/21/191304 Last Action: New Order on 09/21/191304 by JESÚS MONTGOMERY Scheduled PRN Oxycodone/Apap 5-325 (Percocet 5-325 Mg Tablet ) 1 Each Tablet, 1 TAB PO PRN Q8HRS PRN for PAIN, Ref 0 (Reported) Entered as Reported by: SHAQUILLE BISHOP on 10/03/16 1136 Justicifation of Admission Dx: Justifications for Admission: Justification of Admission Dx: Yes MARCOS PRESTON MD Sep 23, 2019 12:04
--- NOTE | 2019-09-23 13:46 | NUR ---
Discharge Note: RENEE KIRBY Discharge instructions and discharge home medications reviewed with Patient and a copy given. All questions have been answered and understanding verbalized. The following instructions and handouts were given: DISCHARGE INSTRUCTIONS, STENT CARD, FOLLOW UP INSTRUCTIONS S/P CATH, CARDIAC REHAB, WORK RESTRICTIONS Discontinued lines and drains: PERIPHERAL iv'S DISCONTINUED, PRESSURE DRESSING APPLIED, CLEAN DRY AND intact. Patient discharged to HOME with FAMILY MEMBER via WHEELCHAIR
--- NOTE | 2019-09-23 13:56 | PDOC ---
CARDIOLOGY PROGRESS NOTE SUBJECTIVE: Had some mild chest pain due to anxiety issues. Otherwise walking around well. OBJECTIVE: Vital Signs/I&O: Vital Signs Date Time Temp Pulse Resp B/P (MAP) Pulse Ox O2 Delivery O2 Flow Rate FiO2 09/23/19 11:01 98.4 69 18 106/55 (72) 98 Room Air 98.4 09/23/19 08:00 2.0 I & O 09/22/19 09/22/19 09/23/19 15:00 23:00 07:00 Intake Total 480 ml 180 ml 100 ml Output Total 0 ml Balance 480 ml 180 ml 100 ml Objective: GEN.: No apparent distress. Alert and oriented. HEENT: Head is normocephalic, atraumatic NECK: Supple. LUNGS: Clear to auscultation. HEART: RRR, S1, S2 present. Peripheral pulses intact ABDOMEN: Soft, nontender. Positive bowel sounds. EXTREMITIES: Without any cyanosis. NEUROLOGIC: Normal speech, normal tone PSYCHIATRIC: Normal affect, normal mood. SKIN: No ulcerations ASSESSMENT: 1. Anterior STEMI s/p PCI Home on asa, prasugrel, metoprolol, lisinopril and statin. f/u on outpt basis in 2 months. Thanks Justicifation of Admission Dx: Justifications for Admission: Justification of Admission Dx: Yes BING HOLBROOK MD Sep 23, 2019 13:56
== END 2019-09-23 13:30 | disposition home or self-care (01) | DRG 246 ==
LOC: ER 09:11 → 1 WEST ICU 10:02 → 2 SOUTH 13:10
PROVIDERS: ADMIT Internal Medicine; ATTEND Internal Medicine
PROC: 027034Z Dilation of Coronary Artery, One Artery with Drug-eluting Intraluminal Device, Percutaneous Approach (ICD-10-PCS; principal; 2019-09-21)
PROC: 3E033PZ Introduction of Platelet Inhibitor into Peripheral Vein, Percutaneous Approach (ICD-10-PCS; 2019-09-21)
PROC: B240ZZ3 Ultrasonography of Single Coronary Artery, Intravascular (ICD-10-PCS; 2019-09-21)
PROC: 4A023N7 Measurement of Cardiac Sampling and Pressure, Left Heart, Percutaneous Approach (ICD-10-PCS; 2019-09-21)
PROC: B2111ZZ Fluoroscopy of Multiple Coronary Arteries using Low Osmolar Contrast (ICD-10-PCS; 2019-09-21)
PROC: B2141ZZ Fluoroscopy of Right Heart using Low Osmolar Contrast (ICD-10-PCS; 2019-09-21)
DX: I21.02 ST elevation (STEMI) myocardial infarction involving left anterior descending coronary artery (principal); R65.11 Systemic inflammatory response syndrome (SIRS) of non-infectious origin with acute organ dysfunction; I10 Essential (primary) hypertension; E66.9 Obesity, unspecified; E78.5 Hyperlipidemia, unspecified; F17.210 Nicotine dependence, cigarettes, uncomplicated; F41.9 Anxiety disorder, unspecified; I25.110 Atherosclerotic heart disease of native coronary artery with unstable angina pectoris; Z68.30 Body mass index [BMI] 30.0-30.9, adult; Z82.49 Family history of ischemic heart disease and other diseases of the circulatory system; Z98.61 Coronary angioplasty status; Z79.899 Other long term (current) drug therapy; Z68.27 Body mass index [BMI] 27.0-27.9, adult; Z71.6 Tobacco abuse counseling
CPT/HCPCS: 36415; 37252; 71045; 80053; 80061; 82607; 83880; 84484; 85025; 85347; 92941; 93005; 93458; 96374; 96375; 99152; 99153; C1725; C1753; C1769; C1874; C1887; C1892; J1644; J2250; J2270; J3010; J3490; Q9967; 99291-25; C1713; G0378; J3246

== ENCOUNTER → 2020-05-10 | Outpatient (CLI) | payer BC ==
[~2020-05-10] MED LIST changes: +ASPI-630 PO; +ATOR40TA59 PO; +CYAN1TAB19 PO; +LEVO100T5 PO; +LISI20TA18 PO; +METO25TA4 PO; +PRAS10TA9 PO; +PRAV40TA2 PO
--- NOTE | 2020-05-10 14:39 | CARD ---
MR#: [id number] Date of Study: 05/10/2020 Ordering Physician: BING HOLBROOK, Referring Physician: BING HOLBROOK, Tech: Destiney Guillory [facility] APPROVED REPORT EXAM: Two-dimensional and M-mode echocardiogram with Doppler and color Doppler. Other Information Quality : AverageHR: 80bpm Rhythm : NSRTechnically limited study due to body habitus. INDICATION Hypertension/HCVD RISK FACTORS Hypertension Obesity Hyperlipidemia Diabetes 2D DIMENSIONS RVDd3.3 (2.9-3.5cm)Left Atrium(2D)3.8 (1.6-4.0cm) IVSd1.1 (0.7-1.1cm)Aortic Root(2D)3.2 (2.0-3.7cm) LVDd4.0 (3.9-5.9cm)LVOT Diameter2.0 (1.8-2.4cm) PWd1.1 (0.7-1.1cm)LVDs2.7 (2.5-4.0cm) FS (%) 31.5 %SV41.0 ml LVEF(%)60.0 (>50%) Aortic Valve AoV Peak Floyd.135.9cm/sAoV VTI29.1cm AO Peak GR.7.4mmHgLVOT Peak Floyd.123.4cm/s AO Mean GR.4mmHgAVA (VMAX)2.77cm2 Mitral Valve MV E Regfjuql012.2cm/sMV E Peak Gr.13mmHg MV DECEL [id number] A Fbymsxyz495.3cm/s MV E Mean Gr.6mmHgE/A Ratio0.9 Pulmonary Valve PV Peak Niuwctce99.2cm/s Tricuspid Valve TR P. [id number] Peak Gr.33mmHg LEFT VENTRICLE The left ventricle is normal size. There is mild concentric left ventricular hypertrophy. The left ve ntricular systolic function is normal and the ejection fraction is within normal range. Estimated eje ction fraction 65%. There is normal LV segmental wall motion. Transmitral Doppler flow pattern is Gra de II-pseudonormal filling dynamics. RIGHT VENTRICLE The right ventricle is normal size. There is normal right ventricular wall thickness. The right ventr icular systolic function is normal. ATRIA The left atrium is mildly dilated. The right atrium size is normal. The interatrial septum is intact with no evidence for an atrial septal defect or patent foramen ovale as noted on 2-D or Doppler imagi ng. AORTIC VALVE The aortic valve is normal in structure and function. Doppler and Color Flow revealed no significant aortic regurgitation. There is no significant aortic valvular stenosis. MITRAL VALVE The mitral valve is calcified and displays decreased opening. 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 There is no evidence of mitral valve prolapse. There is mild mitral valve stenosis. Doppler and Color-flow revealed mild mitral regurgitation. TRICUSPID VALVE The tricuspid valve is normal in structure and function. Doppler and Color Flow revealed mild tricusp id regurgitation. Estimated PAP 37 mmHg. There is no tricuspid valve stenosis. PULMONIC VALVE Doppler and Color Flow revealed no pulmonic valvular regurgitation. There is no pulmonic valvular ana m nosis. GREAT VESSELS The aortic root is normal in size. The ascending aorta is normal in size. The IVC is normal in size a nd collapses >50% with inspiration. PERICARDIAL EFFUSION There is no evidence of significant pericardial effusion. Critical Notification Critical Value: No <Conclusion> The left ventricular systolic function is normal and the ejection fraction is within normal range. E stimated ejection fraction 65%. There is normal LV segmental wall motion. The mitral valve is calcified and displays decreased opening. 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 There is mild mitral stenosis. No significant regurgitation. Signed by : Bing Holbrook, Electronically Approved : 05/10/2020 14:39:14
== END ==
LOC: ECHO 09:40
PROVIDERS: ATTEND Internal Medicine Cardiovascular Disease
DX: I08.1 Rheumatic disorders of both mitral and tricuspid valves (principal); I25.10 Atherosclerotic heart disease of native coronary artery without angina pectoris
CPT/HCPCS: 93306